=== PATIENT | male | born 1985 | race Caucasian/White ===

== ENCOUNTER 2016-11-30 22:15 | Emergency (ER) | payer OTHER ==
[~2016-11-30] VITALS: Ht 175.3 cm; Wt 10.4 kg
[2016-11-30] MEDS ORDERED: HYDROCODONE-AP1 EAC6 PO (23:19)
[2016-12-01] MEDS ORDERED: HYDROCODONE-AP1 EAC6 PO (00:16)
[2016-12-01 00:17] VITALS: BP 140/68
== END 2016-12-01 00:18 | disposition home or self-care (01) ==
LOC: ER 22:15
DX: K08.89 Other specified disorders of teeth and supporting structures (principal); F10.99 Alcohol use, unspecified with unspecified alcohol-induced disorder; F12.10 Cannabis abuse, uncomplicated